=== PATIENT | female | born 1970 | race Caucasian/White ===

== ENCOUNTER → 2016-10-04 | Outpatient (CLI) | payer BC ==
[~2016-10-04] MED LIST: AUGMENTIN 875 M1 TAB PO; FLAGYL; FLAXSEED OIL1 CAP PO; FOLIC ACID; LORTAB 5/500 501 TAB PO; MAG; NO HOME MEDICATIONS; NORCO 325 MG-51 TAB PO; PRENATAL VITAMI1 TA5 PO; SLOW-MAG 106 MG1 ECT; VITAMIN B12 PO; ZINC; [UNRECOGNIZED DRUG - OTHER]
== END ==
LOC: MC.RAD 10:40
DX: Z12.31 Encounter for screening mammogram for malignant neoplasm of breast (principal); Z98.82 Breast implant status

== ENCOUNTER → 2017-01-03 | Outpatient (CLI) | payer BC | LOC: ZCOL.LAB 21:29 | DX: Z01.89 Encounter for other specified special examinations (principal) ==

== ENCOUNTER → 2018-05-02 | Outpatient (CLI) | payer BC | LOC: COL.RAD 07:30 | DX: D86.9 Sarcoidosis, unspecified (principal); R10.13 Epigastric pain; R14.0 Abdominal distension (gaseous); R59.0 Localized enlarged lymph nodes; R19.7 Diarrhea, unspecified; Z98.82 Breast implant status; Z90.710 Acquired absence of both cervix and uterus; Z90.89 Acquired absence of other organs | CPT/HCPCS: Q9967 ==

== ENCOUNTER → 2018-12-28 | Outpatient (CLI) | payer BC | LOC: MC.RAD 11:45 | DX: Z12.31 Encounter for screening mammogram for malignant neoplasm of breast (principal); N63.20 Unspecified lump in the left breast, unspecified quadrant ==

== ENCOUNTER → 2019-01-02 | Outpatient (CLI) | payer BC | LOC: MC.RAD 13:59 | DX: N60.02 Solitary cyst of left breast (principal) ==

== ENCOUNTER → 2020-04-07 | Outpatient (CLI) | payer BC | LOC: MC.RAD 09:15 | DX: Z12.31 Encounter for screening mammogram for malignant neoplasm of breast (principal); N63.20 Unspecified lump in the left breast, unspecified quadrant; Z98.82 Breast implant status ==

== ENCOUNTER → 2020-04-08 | Outpatient (CLI) | payer BC | LOC: MC.RAD 13:00 | DX: N60.02 Solitary cyst of left breast (principal) ==

== ENCOUNTER → 2020-10-27 | Outpatient (CLI) | payer BC | LOC: MC.RAD 09:00 | DX: N63.20 Unspecified lump in the left breast, unspecified quadrant (principal) ==

== ENCOUNTER → 2020-11-03 | Outpatient (CLI) | payer BC | LOC: MC.RAD 10:57 | DX: N60.02 Solitary cyst of left breast (principal) ==

== ENCOUNTER → 2020-11-14 | Outpatient (CLI) | payer BC | LOC: COL.RAD 08:12 | DX: E04.1 Nontoxic single thyroid nodule (principal) ==

== ENCOUNTER → 2021-03-13 | Outpatient (CLI) | payer BC | LOC: COL.RAD 08:24 | DX: D86.9 Sarcoidosis, unspecified (principal); R59.0 Localized enlarged lymph nodes; Z98.82 Breast implant status; Z90.710 Acquired absence of both cervix and uterus | CPT/HCPCS: Q9967 ==

== ENCOUNTER → 2021-05-19 | Outpatient (CLI) | payer BC | LOC: MC.RAD 08:30 | DX: Z12.31 Encounter for screening mammogram for malignant neoplasm of breast (principal) ==

== ENCOUNTER 2021-11-30 15:00 | Outpatient (RCR) | payer BC ==
[2021-11-17 15:24] VITALS: BP 104/67; PULSE 93; TEMP 98.3
[2021-11-19 15:29] VITALS: BP 108/70; PULSE 86; TEMP 97.9
[2021-11-23 15:22] VITALS: BP 107/73; PULSE 87; TEMP 98.1
[2021-11-25 14:39] VITALS: BP 95/64; PULSE 88; TEMP 98.3
[~2021-11-30] VITALS: Ht 170.2 cm; Wt 59.0 kg
[~2021-11-30 15:00] MED LIST changes: +VITAMIN B11000 MCG/M IM
[2021-11-30 15:20] VITALS: BP 104/72; PULSE 87; TEMP 98
--- NOTE | 2021-11-30 15:20 | NUR ---
Pt refused premedication of benadryl.
== END 2021-11-30 15:35 ==
LOC: EUO 15:00
DX: D50.9 Iron deficiency anemia, unspecified (principal)
CPT/HCPCS: J1756

== ENCOUNTER → 2022-04-06 | Outpatient (CLI) | payer BC | LOC: COL.RAD 15:00 | DX: D86.9 Sarcoidosis, unspecified (principal) | CPT/HCPCS: Q9967 ==

== ENCOUNTER → 2022-07-08 | Outpatient (CLI) | payer BC | LOC: MC.RAD 15:13 | DX: Z12.31 Encounter for screening mammogram for malignant neoplasm of breast (principal); R92.8 Other abnormal and inconclusive findings on diagnostic imaging of breast; Z98.82 Breast implant status ==

== ENCOUNTER → 2022-07-15 | Outpatient (CLI) | payer BC | LOC: MC.RAD 14:00 | DX: N60.02 Solitary cyst of left breast (principal) ==